=== PATIENT | female | born 1940 | race Hispanic/Latino ===

== ENCOUNTER 2018-03-18 12:18 | Inpatient (IN) | payer OTHER ==
[2018-03-18] VITALS (8 sets, daily range): BP systolic 144–227; BP diastolic 50–75
[~2018-03-18] VITALS: Ht 152.4 cm; Wt 57.6 kg
[~2018-03-18 12:18] MED LIST: DICL25 PO; EZET1TAB13 PO; LISI1TAB9 PO; MELO7.5T12 PO; PANT40TA25 PO
[2018-03-18] MEDS ORDERED: CLONIDINE HCL 0.1 MG TABLET ONE (12:39)
[2018-03-18 12:44] LABS: BASOPHILS % (AUTO) 0.5 % (0.0-5.0); EOSINOPHILS % (AUTO) 2.6 % (0.0-8.0); HEMATOCRIT 41.9 % (36-48); LYMPHOCYTES % (AUTO) 23.6 % (21.0-51.0); MEAN CORPUSCULAR HEMOGLOBIN 30.4 pg (27.0-33.0); MEAN CORPUSCULAR VOLUME 89.6 fL (79-99); MONOCYTES % (AUTO) 6.8 % (3.0-13.0); NEUTROPHILS % (AUTO) 66.5 % (40.0-77.0); PLATELET COUNT (AUTO) 235 K/uL (130-400); RED BLOOD CELL COUNT(AUTO) 4.68 MIL/uL (4.00-5.50); RED CELL DISTRIBUTION WIDTH 14.8 % (11.0-15.5); WHITE BLOOD COUNT (AUTO) 6.7 K/uL (4.8-10.8)
[2018-03-18 12:54] LABS: POTASSIUM 4.1 mmol/L (3.5-5.1)
[2018-03-18 12:57] LABS: INR 1.02 (0.85-1.15); PARTIAL THROMBOPLASTIN TIME 26.9 SEC (26.3-35.5); PROTHROMBIN TIME 10.7 SEC (9.6-11.6)
[2018-03-18 12:58] LABS: T4 (THYROXINE) 8.8 mcg/dL (4.7-13.3)
[2018-03-18 13:06] LABS: ALBUMIN 4.3 g/dL (3.5-5.0); BILIRUBIN,TOTAL 0.9 mg/dL (0.2-1.0); THYROID STIMULATING HORMONE 3.08 uIU/mL (0.36-3.74); TOTAL PROTEIN, SERUM 7.8 g/dL (6.0-8.3)
[2018-03-18] MEDS ORDERED: SODIUM CHLORIDE 0.9% 10 ML VIAL IVP PRN (14:00)
[2018-03-18] MEDS ORDERED: ACETAMINOPHEN 325 MG TAB PO PRN (14:00)
[2018-03-18] MEDS ORDERED: CLONIDINE HCL 0.1 MG TABLET PO PRN (14:00)
[2018-03-18] MEDS: HYDRALAZINE HCL 20 MG/ML VIAL IV PRN (15:24)
[2018-03-18] MEDS ORDERED: CEFAZOLIN 2GM / 50 ML 50 ML IV PRN (17:00)
[2018-03-18] MEDS ORDERED: CEFAZOLIN SODIUM 1 GM VIAL IVP SCH (17:00)
[2018-03-18 17:13] LABS: HEMATOCRIT 38.1 % (36-48); MEAN CORPUSCULAR HEMOGLOBIN 31.3 pg (27.0-33.0); MEAN CORPUSCULAR HGB CONC 34.9 g/dL (32.0-36.0); MEAN CORPUSCULAR VOLUME 89.7 fL (79-99); PLATELET COUNT (AUTO) 215 K/uL (130-400); RED BLOOD CELL COUNT(AUTO) 4.25 MIL/uL (4.00-5.50); RED CELL DISTRIBUTION WIDTH 14.9 % (11.0-15.5); WHITE BLOOD COUNT (AUTO) 7.7 K/uL (4.8-10.8)
[2018-03-18 17:19] LABS: POTASSIUM 4.2 mmol/L (3.5-5.1)
[2018-03-18 17:21] LABS: INR 1.04 (0.85-1.15); PARTIAL THROMBOPLASTIN TIME 26.7 SEC (26.3-35.5); PROTHROMBIN TIME 10.9 SEC (9.6-11.6)
[2018-03-18] MEDS ORDERED: POTASSIUM CHLORIDE 10% ELIXIR 20 MEQ/15 ML UDCUP PO PRN (20:00)
[2018-03-18] MEDS ORDERED: POTASSIUM CHLORIDE 20MEQ/100ML 100 ML IV PRN (20:00)
[2018-03-18] MEDS ORDERED: POTASSIUM CHLORIDE 20 MEQ ERTAB PO PRN (20:00)
[2018-03-18] MEDS ORDERED: LIDOCAINE HCL-MPF 1% 2ML VIAL IVP PRN (20:00)
[2018-03-18] MEDS: FAMOTIDINE 20MG TAB 20 MG TAB PO SCH (22:17)
[2018-03-19] VITALS (14 sets, daily range): BP systolic 123–190; BP diastolic 48–79
[2018-03-19 03:58] LABS: HEMATOCRIT 35.5 % (36-48); MEAN CORPUSCULAR HEMOGLOBIN 30.6 pg (27.0-33.0); MEAN CORPUSCULAR HGB CONC 34.3 g/dL (32.0-36.0); MEAN CORPUSCULAR VOLUME 89.2 fL (79-99); PLATELET COUNT (AUTO) 213 K/uL (130-400); RED BLOOD CELL COUNT(AUTO) 3.98 MIL/uL (4.00-5.50); WHITE BLOOD COUNT (AUTO) 6.8 K/uL (4.8-10.8)
[2018-03-19 04:19] LABS: CREATININE 1.3 mg/dL (0.5-1.5); POTASSIUM 3.7 mmol/L (3.5-5.1)
[2018-03-19] MEDS ORDERED: LISI1TAB11 PO (05:20)
[2018-03-19] MEDS ORDERED: ATOR20TA65 PO (05:20)
[2018-03-19] MEDS ORDERED: ASPI-555 PO (05:20)
[2018-03-19] MEDS: FAMOTIDINE 20MG TAB 20 MG TAB PO SCH ×2 (09:00→20:12)
[2018-03-19] MEDS ORDERED: LIDOCAINE HCL 1% 20 ML VIAL ONE (17:23)
[2018-03-19] MEDS ORDERED: BUPIVACAINE/PF 0.25% 30ML VIAL IJ ONE (17:23)
[2018-03-19] MEDS ORDERED: ISOVUE-300 100 ML VIAL IV ONE (17:24)
[2018-03-19] MEDS ORDERED: CEFAZOLIN SODIUM 1 GM VIAL ONE (17:24)
[2018-03-19] MEDS ORDERED: MIDAZOLAM HCL 1 MG/ML 2ML VIAL ONE (18:12)
[2018-03-19] MEDS ORDERED: MORPHINE SULFATE 2 MG/ML 1ML SYG ONE (18:13)
[2018-03-19] MEDS ORDERED: LABETALOL HCL 5 MG/ML 20ML VIAL IV ONE (18:57)
[2018-03-19] MEDS ORDERED: ACETAMINOPHEN 325 MG TAB PO PRN ×2 (19:15)
[2018-03-19] MEDS: HYDRALAZINE HCL 20 MG/ML VIAL IV PRN (20:08)
[2018-03-19] MEDS: CEFAZOLIN SODIUM 1 GM VIAL IVP SCH (23:46)
[2018-03-20] VITALS (16 sets, daily range): BP systolic 118–178; BP diastolic 55–74
[2018-03-20] MEDS: CEFAZOLIN SODIUM 1 GM VIAL IVP SCH ×2 (06:14→12:49)
[2018-03-20] MEDS ORDERED: PANT40TA25 PO (08:00)
[2018-03-20] MEDS ORDERED: AEC81 PO (08:10)
[2018-03-20] MEDS: HYDRALAZINE HCL 20 MG/ML VIAL IV PRN (08:27)
[2018-03-20] MEDS ORDERED: CEPH250 PO (10:26)
[2018-03-20] MEDS ORDERED: LISINOPRIL 20 MG TABLET PO SCH (10:30)
[2018-03-20] MEDS ORDERED: PANTOPRAZOLE SODIUM 40 MG TABLET.DR PO SCH (10:30)
[2018-03-20] MEDS ORDERED: HYDROCHLOROTHIAZIDE 25 MG TABLET PO SCH (10:30)
[2018-03-20] MEDS ORDERED: ONDANSETRON HCL 4 MG/2 ML VIAL ONE (12:41)
[2018-03-20] MEDS ORDERED: ONDANSETRON HCL MDV 20ML 2 MG/ML VIAL IVP SCH (13:00)
== END 2018-03-20 15:38 | disposition home or self-care (01) | DRG 244 ==
LOC: EDH 12:18 → EDHIP 12:19 → 2AH 14:14 → 2CH 03-19 20:07
PROVIDERS: ADMIT Family Medicine; ATTEND Family Medicine
PROC: 0JH606Z Insertion of Pacemaker, Dual Chamber into Chest Subcutaneous Tissue and Fascia, Open Approach (ICD-10-PCS; principal; 2018-03-19)
PROC: 02H63JZ Insertion of Pacemaker Lead into Right Atrium, Percutaneous Approach (ICD-10-PCS; 2018-03-19)
PROC: 02HK3JZ Insertion of Pacemaker Lead into Right Ventricle, Percutaneous Approach (ICD-10-PCS; 2018-03-19)
DX: I44.1 Atrioventricular block, second degree (principal); E78.5 Hyperlipidemia, unspecified; I10 Essential (primary) hypertension; Z82.49 Family history of ischemic heart disease and other diseases of the circulatory system; Z95.0 Presence of cardiac pacemaker; Z90.710 Acquired absence of both cervix and uterus; Z90.49 Acquired absence of other specified parts of digestive tract; Z88.5 Allergy status to narcotic agent; Z98.1 Arthrodesis status
CPT/HCPCS: 33208; 36415; 71045; 71046; 80048; 80053; 84436; 84443; 84479; 85025; 85027; 85610; 85730; 93005; 93306; 93308; 93880; 99156; 99157; A4218; C1785; J0360; J0690; J2250; J2405; J3490; Q9967

== ENCOUNTER 2018-03-22 19:30 | Emergency (ER) | payer OTHER ==
[~2018-03-22 19:30] MED LIST changes: +ATOR20TA65 PO; +CEPH250 PO; -DICL25 PO; +LISI1TAB11 PO
[2018-03-22 19:55] LABS: BASOPHILS % (AUTO) 0.6 % (0.0-5.0); HEMATOCRIT 38.8 % (36-48); LYMPHOCYTES % (AUTO) 26.5 % (21.0-51.0); MEAN CORPUSCULAR HEMOGLOBIN 30.6 pg (27.0-33.0); MEAN CORPUSCULAR HGB CONC 34.1 g/dL (32.0-36.0); MEAN CORPUSCULAR VOLUME 89.8 fL (79-99); MONOCYTES % (AUTO) 9.5 % (3.0-13.0); NEUTROPHILS % (AUTO) 59.4 % (40.0-77.0); NUCLEATED RED BLOOD CELLS 0.1 % (0.0-0.19); PLATELET COUNT (AUTO) 207 K/uL (130-400); RED BLOOD CELL COUNT(AUTO) 4.32 MIL/uL (4.00-5.50); RED CELL DISTRIBUTION WIDTH 14.8 % (11.0-15.5); WHITE BLOOD COUNT (AUTO) 6.8 K/uL (4.8-10.8)
[2018-03-22] MEDS ORDERED: HYDRALAZINE HCL 20 MG/ML VIAL IV ONE (19:56)
[2018-03-22 20:04] LABS: CREATININE 0.9 mg/dL (0.5-1.5); POTASSIUM 4.1 mmol/L (3.5-5.1)
[2018-03-22 20:09] LABS: ALBUMIN 3.9 g/dL (3.5-5.0); BILIRUBIN,TOTAL 0.4 mg/dL (0.2-1.0); TOTAL PROTEIN, SERUM 6.9 g/dL (6.0-8.3)
[2018-03-22 20:41] LABS: INR 0.98 (0.85-1.15); PARTIAL THROMBOPLASTIN TIME 26.7 SEC (26.3-35.5); PROTHROMBIN TIME 10.3 SEC (9.6-11.6)
[2018-03-22 21:07] LABS: CREATINE KINASE MB 2.2 ng/mL (0.5-3.6)
[2018-03-22 21:28] LABS: APPEARANCE,URINE Clear (CLEAR); BILIRUBIN,URINE Negative (NEGATIVE); COLOR,URINE Yellow (YELLOW); GLUCOSE, URINE (UA) Negative (NEGATIVE); KETONES,URINE Negative (NEGATIVE); LEUKOCYTE ESTERASE ,URINE Negative (NEGATIVE); NITRATE,URINE Negative (NEGATIVE); OCCULT BLOOD,URINE Negative (NEGATIVE); PH,URINE 7.5 (5.0-8.0); PROTEIN,URINE Negative (NEGATIVE); UROBILINOGEN,URINE 0.2 mg/dL (0.2-1.0)
[2018-03-22] MEDS ORDERED: HYDROXYZINE HCL 25 MG TABLET ONE (22:28)
== END 2018-03-22 22:38 | disposition home or self-care (01) ==
LOC: EDH 19:30
DX: I10 Essential (primary) hypertension (principal); E78.5 Hyperlipidemia, unspecified; Z95.0 Presence of cardiac pacemaker; Z90.710 Acquired absence of both cervix and uterus; Z98.890 Other specified postprocedural states
CPT/HCPCS: 36415; 71045; 80053; 81003; 82550; 82553; 83880; 84484; 85025; 85610; 85730; 93005; 96365; 99291; J0360

== ENCOUNTER → 2019-04-24 | Outpatient (CLI) | payer OTHER | END | disposition home or self-care (01) | LOC: SHCH 09:51 | PROVIDERS: ATTEND Internal Medicine Cardiovascular Disease | DX: I05.9 Rheumatic mitral valve disease, unspecified (principal); I10 Essential (primary) hypertension | CPT/HCPCS: 93306 ==

== ENCOUNTER → 2021-04-22 | Outpatient (CLI) | payer OTHER ==
[~2021-04-22] MED LIST changes: -LISI1TAB11 PO; +LISI1TAB32 PO; +LISI1TAB51 PO; -LISI1TAB9 PO; -PANT40TA25 PO; +PANT40TA54 PO
== END | disposition home or self-care (01) ==
LOC: SHCH 09:35
PROVIDERS: ATTEND Internal Medicine Cardiovascular Disease
DX: I65.23 Occlusion and stenosis of bilateral carotid arteries (principal); I10 Essential (primary) hypertension
CPT/HCPCS: 93306; 93356; 93880

== ENCOUNTER → 2023-01-25 | Outpatient (CLI) | payer OTHER ==
[~2023-01-25] MED LIST changes: +EZET-77 PO; -EZET1TAB13 PO; -LISI1TAB32 PO; +LISI1TAB49 PO
== END | disposition home or self-care (01) ==
LOC: RAH 13:26
PROVIDERS: ATTEND Internal Medicine Cardiovascular Disease
DX: Z13.6 Encounter for screening for cardiovascular disorders (principal); R93.1 Abnormal findings on diagnostic imaging of heart and coronary circulation
CPT/HCPCS: 75571

== ENCOUNTER → 2023-02-02 | Outpatient (CLI) | payer OTHER | END | disposition home or self-care (01) | LOC: SHCH 08:31 | PROVIDERS: ATTEND Internal Medicine Cardiovascular Disease | DX: R07.9 Chest pain, unspecified (principal); E78.5 Hyperlipidemia, unspecified; I10 Essential (primary) hypertension; Z95.0 Presence of cardiac pacemaker | CPT/HCPCS: 93306 ==

== ENCOUNTER 2023-04-12 15:15 | Emergency (ER) | payer OTHER ==
[~2023-04-12] VITALS: Ht 152.4 cm; Wt 54.9 kg
[2023-04-12] MEDS ORDERED: METO-391 PO (16:08)
[2023-04-12 16:09] LABS: HEMATOCRIT 39.6 % (36-48); MEAN CORPUSCULAR HGB CONC 33.6 g/dL (32.0-36.0); MEAN CORPUSCULAR VOLUME 89.2 fL (79-99); RED BLOOD CELL COUNT(AUTO) 4.44 MIL/uL (4.00-5.50); RED CELL DISTRIBUTION WIDTH 14.4 % (11.0-15.5); WHITE BLOOD COUNT (AUTO) 6.6 K/uL (4.8-10.8)
[2023-04-12 16:22] LABS: POTASSIUM 3.4 mmol/L (3.5-5.1)
[2023-04-12 16:26] LABS: ALBUMIN 3.9 g/dL (3.5-5.0); TOTAL PROTEIN, SERUM 7.1 g/dL (6.0-8.3)
[2023-04-12] MEDS ORDERED: LABETALOL 20MG VIAL IV ONE (16:30)
[2023-04-12 17:15] VITALS: BP 162/68
[2023-04-13] MEDS ORDERED: TRAM50TA4 PO (15:41)
== END 2023-04-12 17:15 | disposition home or self-care (01) ==
LOC: EDH 15:15
DX: I10 Essential (primary) hypertension (principal); E78.00 Pure hypercholesterolemia, unspecified; Z79.899 Other long term (current) drug therapy; Z90.49 Acquired absence of other specified parts of digestive tract; Z90.89 Acquired absence of other organs; Z98.890 Other specified postprocedural states
CPT/HCPCS: 99283; 96374; 71045; 84484; 80053; 85027; 36415; 93005; J3490

== ENCOUNTER → 2023-09-06 | Outpatient (CLI) | payer OTHER ==
[~2023-09-06] MED LIST changes: -CEPH250 PO; -EZET-77 PO; -LISI1TAB49 PO; -MELO7.5T12 PO; +METO-391 PO; -PANT40TA54 PO; +TRAM50TA4 PO
== END | disposition home or self-care (01) ==
LOC: SHCH 11:15
PROVIDERS: ATTEND Internal Medicine Cardiovascular Disease
DX: I10 Essential (primary) hypertension (principal); E78.5 Hyperlipidemia, unspecified; Z95.0 Presence of cardiac pacemaker
CPT/HCPCS: 93306

== ENCOUNTER 2023-09-17 10:26 | Emergency (ER) | payer OTHER ==
[~2023-09-17] VITALS: Ht 152.4 cm; Wt 55.8 kg
[2023-09-17 11:19] LABS: BASOPHILS # (AUTO) 0.02 K/uL (0.00-0.20); BASOPHILS % (AUTO) 0.2 % (0.0-5.0); EOSINOPHILS # (AUTO) 0.07 K/uL (0.00-0.70); EOSINOPHILS % (AUTO) 0.6 % (0.0-8.0); HEMATOCRIT 45.2 % (36-48); IMMATURE GRANULOCYTE ABSOLUTE 0.04 K/uL (0-1); LYMPHOCYTES # (AUTO) 0.8 K/uL (1.0-4.8); LYMPHOCYTES % (AUTO) 7.4 % (21.0-51.0); MEAN CORPUSCULAR HEMOGLOBIN 29.6 pg (27.0-33.0); MEAN CORPUSCULAR HGB CONC 33.2 g/dL (32.0-36.0); MEAN CORPUSCULAR VOLUME 89.3 fL (79-99); MONOCYTES # (AUTO) 0.5 K/uL (0.1-1.0); MONOCYTES % (AUTO) 4.6 % (3.0-13.0); NEUTROPHILS # (AUTO) 9.8 K/uL (1.8-7.7); NEUTROPHILS % (AUTO) 86.8 % (40.0-77.0); PLATELET COUNT (AUTO) 249 K/uL (130-400); RED BLOOD CELL COUNT(AUTO) 5.06 MIL/uL (4.00-5.50); RED CELL DISTRIBUTION WIDTH 14.7 % (11.0-15.5); WHITE BLOOD COUNT (AUTO) 11.3 K/uL (4.8-10.8)
[2023-09-17 11:26] LABS: POTASSIUM 3.4 mmol/L (3.5-5.1)
[2023-09-17 11:31] LABS: ALBUMIN 4.1 g/dL (3.5-5.0); BILIRUBIN,TOTAL 0.9 mg/dL (0.2-1.0); MAGNESIUM 1.9 mg/dL (1.80-2.40); TOTAL PROTEIN, SERUM 7.8 g/dL (6.0-8.3)
[2023-09-17 11:38] LABS: B-TYPE NATRIURETIC PEPTIDE 91 pg/mL (0-100)
[2023-09-17] MEDS ORDERED: LOPERAMIDE 1 MG/7.5 ML UDCUP PO SCH (12:30)
[2023-09-17] MEDS ORDERED: ONDANSETRON 4MG INJ IVP ONE (12:30)
[2023-09-17] MEDS ORDERED: 0.9%NACL 1000ML 1,000 ML IV ONE (12:30)
[2023-09-17] MEDS ORDERED: LOPERAMIDE HCL 2 MG CAP PO ONE (12:43)
[2023-09-17 13:00] LABS: APPEARANCE,URINE CLEAR (CLEAR); BILIRUBIN,URINE NEGATIVE (NEGATIVE); COLOR,URINE LIGHT-YELLOW (YELLOW); GLUCOSE, URINE (UA) NEGATIVE (NEGATIVE); KETONES,URINE NEGATIVE (NEGATIVE); LEUKOCYTE ESTERASE ,URINE NEGATIVE Leu/uL (NEGATIVE); NITRATE,URINE NEGATIVE (NEGATIVE); OCCULT BLOOD,URINE NEGATIVE (NEGATIVE); PROTEIN,URINE NEGATIVE (NEGATIVE); UROBILINOGEN,URINE 0.2 mg/dL (0.2-1.0)
[2023-09-17] MEDS ORDERED: LOPERAMIDE 1 MG/7.5 ML UDCUP PO ONE (13:00)
[2023-09-17 13:01] LABS: ADD UA MICROSCOPIC NO
[2023-09-17] MEDS ORDERED: ONDA4TAB10 PO (15:26)
[2023-09-17 15:33] VITALS: BP 158/79; PULSE 88; RESP 18; O2SAT 96
== END 2023-09-17 15:49 | disposition home or self-care (01) ==
LOC: EDH 10:26 → MERGE 10:26 → EDBD 10:26 → EDH 15:49
DX: K52.9 Noninfective gastroenteritis and colitis, unspecified (principal); E86.0 Dehydration; E78.00 Pure hypercholesterolemia, unspecified; I10 Essential (primary) hypertension; Z95.810 Presence of automatic (implantable) cardiac defibrillator
CPT/HCPCS: 99284; 96374; 71045; 83735; 84484; 80053; 83880; 83690; 85025; 81003; 36415; 93005; J7030; J2405

== ENCOUNTER 2024-09-26 21:47 | Emergency (ER) | payer OTHER ==
[~2024-09-26] VITALS: Ht 152.4 cm; Wt 54.4 kg
[~2024-09-26 21:47] MED LIST changes: +ONDA-243 PO
[2024-09-26 21:50] VITALS: TEMP 98
[2024-09-26] MEDS: acetaMINOPHEN 500 MG TABLET PO ONE (22:20)
--- NOTE | 2024-09-26 23:53 | ERN ---
ED Note History of Present Illness Stated Complaint: HAND INJURY Chief Complaint: Hand Problem/Injury Time Seen by MD: 21:56 Time Seen by Midlevel: 21:56 Dictation: The patient is an 84-year-old female with a history of hypertension, hyperlipidemia, pacemaker who presents to the emergency department with left hand pain after a trip and fall about4 hours prior to arrival. Patient reports she tripped over the sidewalk and went forward used her hands to stop the fall. Patient denies head strike, LOC, use of blood thinners. Patient denies any neck pain, other extremity pain. Denies any other injuries. Patient reports up-to-date with tetanus Allergies: Coded Allergies: codeine (Verified Allergy, Severe, SHORTNESS OF BREATH, 05/13/15) No Known Allergies (Unverified Allergy, Unknown, 09/20/23) Home Meds Active Scripts Ondansetron (Ondansetron Odt) 4 Mg Tab.rapdis, 4 MG PO TID PRN for NAUSEA, #30 TAB 0 Refills Prov:ABHINAV MCBRIDE MD 09/17/23 Tramadol Hcl (Tramadol HCl) 50 Mg Tablet, 50 MG PO Q6HPRN PRN for PAIN, #30 TAB 0 Refills Prov:FREDO MELGAR MD 04/13/23 Reported Medications Metoprolol Succinate (Metoprolol Succinate) 50 Mg Tab.er.24h, 50 MG PO HS 04/12/23 Atorvastatin Calcium (Atorvastatin Calcium) 20 Mg Tablet, 20 MG PO daily at hs, TAB 03/19/18 Lisinopril/Hydrochlorothiazide (Lisinopril-Hctz 20-12.5 mg Tab) 1 Each Tablet, 1 EACH PO DAILY, TAB 03/19/18 Past Medical History Past Medical History: High Cholesterol, Hypertension, Other Additional Past Medical Hx: PACEMAKER Surgical History: Hysterectomy, Tonsillectomy RN Note Reviewed/Agreed w/PFSH: Yes Review of System Dictation Constitutional: Negative for fever,chills, and weight loss Eyes: Negative for injury, pain,redness, and discharge ENT: Negative for injury,pain or swelling Cardiovascular: Negative for chest pain, palpitations, and edema Respiratory: Negative for shortness of breath, cough, and wheezing, Abdomen/GI: Negative for abdominal pain, nausea, vomiting, diarrhea, and constipation Back: Negative for injury and pain : Negative for injury, bleeding and discharge MS/Extremity: Positive for left hand pain, left arm injury Skin: Negative for rash, and discoloration Neuro: Negative for headache, weakness, numbness, tingling, and seizure Psych: Negative for suicide ideation, homicidal ideation, and hallucinations Initial Vital Sign VS Vital Signs Date Time Temp Pulse Resp B/P (MAP) Pulse Ox O2 Delivery O2 Flow Rate FiO2 09/26/24 21:50 98.1 68 18 198/84 97 Room Air 0 09/26/24 22:25 21 Physical Exam Dictation Vital Signs reviewed General Appearance: Alert, oriented x 3, no acute distress, well developed, nourished. Head and Face: non-traumatic. Eyes: PERRL, pink conjunctivas, eyelid no trauma, anterior chamber with arcus senilis. Ears: Pinnas intact and no signs of trauma or erythema ear canals clear and no discharge TM no erythema Nose: No discharge, no bleeding. Oropharynx: Mouth normal, tongue pink. pharynx clear,no erythema, tonsils no exudates, no abscesses noted, mucous membrane moist Neck: Supple, non-tender, no thyromegaly, no masses, no JVD, no bruits Breast:Deferred Chest:No tenderness, no crepitus, no paradoxical movement, no retractions Lungs:Clear, well-ventilated, symmetric, no rales, no wheezing, no rhonchi, no stridor, good breath sounds bilaterally Heart: Regular rate, regular rhythm, no murmur, no gallops Vascular: no peripheral edema, Abdomen: Soft, positive bowel sounds, nondistended, no guarding, nontender, no rebound, no masses no hepatomegaly, no splenomegaly, no Ho's sign, no hernias. Rectal: Deferred Genital: Deferred Neurological: Normal speech, motor function intact, sensory function intact Musculoskeletal: Neck nontender, full range of motion, back nontender, full range of motion, Extremities: nontender, full range of motion , left hand swelling and bruising anteriorly, no deformity, cap refill less than 2 seconds, radial pulse 3+, abrasion noted to left forearm, minimal bleeding, CMS intact Skin: Color pink, dry, no turgor, no rash, no lac no contusions. Abrasion to left forearm5 cm, no active bleeding Lymphatic: Deferred Results (Laboratory/Radiology) Labs Reviewed?: Yes ED Course ED Course Orders Procedure Category Date Status Time Hand 3+Vws Lt RAD 09/26/24 Taken 22:02 Forearm 2vws Lt RAD 09/26/24 Taken 22:02 Wrist Comp 3+Vws Lt RAD 09/26/24 Taken 22:02 Acetaminophen 500mg PHA 09/26/24 Complete Tab (Tylenol 500mg T 22:30 Wound Care (Er) CPOE 09/26/24 Transmitted 22:02 Volar Splint JATIN.ER 09/27/24 In Process 00:05 Current Medications Medications (Trade) Dose Ordered Sig/Calderon Route PRN Reason Start Time Stop Time Status Last Admin Dose Admin Acetaminophen (TYLenol 500MG TAB) 1,000 mg ONCE ONCE PO 09/26/24 22:30 09/26/24 22:31 DC 09/26/24 22:20 Vital Signs Date Time Temp Pulse Resp B/P (MAP) Pulse Ox O2 Delivery O2 Flow Rate FiO2 09/27/24 00:10 60 18 140/77 100 Room Air* 0 21 09/26/24 22:25 62 18 154/84 96 Room Air* 0 21 09/26/24 21:50 98.1 68 18 198/84 97 Room Air 0 Medical Decision Making MDM The patient is an 84-year-old female with a history of hypertension, hyperli pidemia, pacemaker who presents to the emergency department with left hand pain after a trip and fall about4 hours prior to arrival. Patient reports she tripped over the sidewalk and went forward used her hands to stop the fall. Patient denies head strike, LOC, use of blood thinners. Patient denies any neck pain, other extremity pain. Denies any other injuries. Patient reports up-to-date with tetanus No obvious fracture seen on x-ray. Patient will be discharged to follow up with PCP number referral to orthopedic. Differential diagnosis: Hand contusion, hand fracture, wrist sprain, Need for hospitalization: Patient does not meet criteria for hospitalization. There are no social concerns with this patient. DX & DISP Disposition: Discharge Departure Impression: Primary Impression: Fall Additional Impressions: Hand contusion, Abrasion of left forearm Condition: Stable Additional Instructions: Please keep wound clean and dry. You may apply Neosporin3 times a day. Monitor for any signs of infection like fevers, purulent drainage, redness to the area. Please follow up with PCP and orthopedic. If symptoms worsen please return to ER. FOLLOW-UP WITH PRIMARY CARE PROVIDER IN 1 TO 2 DAYS. TAKE MEDICATIONS DIRECTED HERE IN THE EMERGENCY ROOM. OKAY TO CONTINUE HOME MEDICATIONS UNLESS OTHERWISE DISCUSSED DURING YOUR VISIT IN THE EMERGENCY ROOM TODAY. RETURN TO YOUR NEAREST EMERGENCY ROOM IF SYMPTOMS WORSEN OR IF THERE IS NO IMPROVEMENT. CALL 911 IF YOU NEED IMMEDIATE ASSISTANCE. TAKE TYLENOL OR MOTRIN [id number] NEEDED AND IF NO CONTRAINDICATIONS ARE PRESENT. INCREASE ORAL HYDRATION. A WOUND CULTURE OR URINE CULTURE WAS ORDERED HERE IN THE EMERGENCY ROOM DEPARTMENT PLEASE FOLLOW-UP WITH PRIMARY CARE PROVIDER AND ADVISE THEM TO GET REPEAT PORTS FROM OUR FACILITY. IF YOU HAD ANY ELENA WRAP/SPLINTS THAT WERE APPLIED HERE, PLEASE DO NOT REMOVE THEM UNTIL YOU SEE YOUR PRIMARY CARE OR SPECIALTY. Referrals: BERYL FIERRO DO (PCP) TRAE HARRIS MD Time of Disposition: 00:07 I have reviewed the case, and I agree with, Diagnosis and Plan DANNIELLE POWERS SURGICAL TECHNICIAN Sep 26, 2024 23:52
[2024-09-27 00:10] VITALS: BP 140/77; PULSE 60; RESP 18; O2SAT 100
--- NOTE | 2024-09-27 09:32 | HMCIMG ---
WRIST COMP 3+VWS LT REASON: fall, swelling TECHNIQUE: 3 views were obtained. FINDINGS: There is no evidence of fracture or dislocation. There is no joint effusion. The soft tissues appear unremarkable. There is no evidence of a radiopaque foreign body. IMPRESSION: No acute findings.
--- NOTE | 2024-09-27 09:33 | HMCIMG ---
FOREARM 2VWS LT REASON: fall, swelling TECHNIQUE: 2 views were obtained. FINDINGS: There is no evidence of fracture or dislocation. There is no joint effusion. The soft tissues appear unremarkable. There is no evidence of a radiopaque foreign body. IMPRESSION: No acute findings.
== END 2024-09-27 00:29 | disposition home or self-care (01) ==
LOC: EDH 21:47
DX: S50.812A Abrasion of left forearm, initial encounter (principal); S60.222A Contusion of left hand, initial encounter; E78.00 Pure hypercholesterolemia, unspecified; I10 Essential (primary) hypertension; Z79.899 Other long term (current) drug therapy; Z88.5 Allergy status to narcotic agent; Z90.710 Acquired absence of both cervix and uterus; Z95.0 Presence of cardiac pacemaker; W01.0XXA Fall on same level from slipping, tripping and stumbling without subsequent striking against object, initial encounter; Y93.89 Activity, other specified; Y92.89 Other specified places as the place of occurrence of the external cause; Y99.8 Other external cause status
CPT/HCPCS: 29125; 73090; 73110; 73130; 99283